=== PATIENT | female | born 1945 | race Caucasian/White ===

== ENCOUNTER 2023-09-26 16:58 | Emergency (ER) | payer MEDICARE, SELFPAY ==
[2023-09-26 17:00] VITALS: BP 129/71
--- NOTE | 2023-09-26 18:42 | ED.GENMED ---
History of Present Illness
<Riya Burns PA-C - Last Filed: 09/27/23 15:57>
General
Chief Complaint: Skin Problem
Source: patient
Exam Limitations: none
Time Seen by Provider: 09/26/23 18:41
Nursing documentation reviewed up to this point in time: agreed with
History of Present Illness
History of Present Illness:
Patient is a 78-year-old female history atrial fibrillation on Eliquis presenting evaluation of right foot pain. Patient states that yesterday evening and I fell the counter and struck on the top of the foot. She had a lot of bleeding initially
from the injury was taken via EMS to [facility] where they placed 2 stitches. They dressed the wound with gauze and wrapped with an Robert bandage. Patient states that since returning home from the hospital this morning around 3 AM she has
had a significant amount of bruising and much worse pain. She came back to the emergency department for further evaluation.
Patient denies any fevers, chills, chest pain, shortness of breath, numbness/tingling in the right lower extremity.
Patient is on Eliquis for atrial fibrillation.
Past History
<Riya Burns PA-C - Last Filed: 09/27/23 15:57>
Past History
ED Past Medical History: Arrthythmia (Atrial fib), CVA (X2), HTN, Hypercholesterolemia and Other (Chronic Migraines, Prolapse)
ED Past Surgical History: Appendectomy, Cardiac (Ablation X4) and Other
Social History
Tobacco: Non-smoker
Alcohol: Occasional
Drug: None
Personal:
Living: with family
Employment: Employed
Family History
Family History: Other
Review of Systems
<Riya Burns PA-C - Last Filed: 09/27/23 15:57>
Review of Systems
Allergies reviewed?: Yes
All Other Systems: ROS reviewed and negative except as documented in HPI and ROS
Phy Exam
<Riya Burns PA-C - Last Filed: 09/27/23 15:57>
Physical Exam
Physical Exam:
Vitals: Patient's vital signs are stable. Afebrile
General: Patient is mildly uncomfortable due to pain, no acute distress. Nontoxic-appearing
Skin: Significant ecchymosis and mild edema of right dorsal foot with ecchymoses surrounding to right ankle
Head: Normocephalic, atraumatic
Eyes: Sclera nonicteric. EOMs intact. No nystagmus.
Throat: Protecting airway
Neck: Normal ROM, no cervical spine tenderness, no meningismus
Cardiac: Regular rate and rhythm, no murmurs.
Pulm: Normal respiratory effort, no wheezes, rales, rhonchi heard on exam.
Abdomen: No abdominal tenderness.
Extremities: Significant tenderness of right dorsal foot with area of edema and significant ecchymoses. Pinpoint laceration of right dorsal foot with [address] with minimal oozing blood from laceration. No pus drainage or red streaking
around the wound. Palpable DP and PT pulses bilaterally. Acceptable capillary refill. Good sensation of right lower extremity. No bony tenderness of right lower extremity or obvious deformity.
Neuro: AAOx3. CN II-XII intact. No focal neurologic deficits.
Psychiatric: Normal affect.
Course
<Riya Burns PA-C - Last Filed: 09/27/23 15:57>
Vital Signs
Initial and Last Documented VS:
Initial Vital Signs
Temp Pulse Resp BP Pulse Ox
98.6 F 82 18 129/71 97
09/26/23 17:00 09/26/23 17:00 09/26/23 17:00 09/26/23 17:00 09/26/23 17:00
Last Documented Vital Signs
Temp Pulse Resp BP Pulse Ox
98.6 F 81 22 131/68 97
07/25/24 17:00 09/26/23 21:17 09/26/23 21:17 09/26/23 21:17 09/26/23 17:00
<Esa Earl DO - Last Filed: 09/26/23 20:47>
Vital Signs
Initial and Last Documented VS:
Initial Vital Signs
Temp Pulse Resp BP Pulse Ox
98.6 F 82 18 129/71 97
09/26/23 17:00 09/26/23 17:00 09/26/23 17:00 09/26/23 17:00 09/26/23 17:00
Last Documented Vital Signs
Temp Pulse Resp BP Pulse Ox
98.6 F 81 22 131/68 97
09/26/23 17:00 09/26/23 21:17 09/26/23 21:17 09/26/23 21:17 09/26/23 17:00
<Riya Burns PA-C - Last Filed: 09/27/23 15:57>
MDM/Problems Addressed
Differential Diagnosis Includes:
Not limited to: Hematoma, cellulitis, compartment syndrome
MDM/Problems Addressed:
78 year old female with history A-fib on Eliquis presenting for evaluation of severe foot pain following injury last night. Patient suffered laceration to right dorsal foot when knife fell off the counter. She was taken to [facility] where
2 sutures were placed in the foot. Patient presents today due to intractable pain in the right foot. Patient denies any numbness/tingling of right foot. Patient does have follow-up scheduled with trauma doctor from [place] tomorrow morning.
Patient up-to-date with vaccines. Vital signs are stable. Physical exam as above. Significant ecchymoses and tenderness of right dorsal foot. DP and PT pulse of right lower extremity palpable. Sensation intact. Patient does have nail ugandan so
capillary refill somewhat difficult to assess. Patient seen with attending physician. Do not suspect compartment syndrome at this time like likely hematoma. No surrounding erythema or red streaking, no pus drainage to assist infectious process at
this time. Bleeding remains under control. Will redress, placed in Robert wrap. Recommend ice, elevation, pain control with prescribed Vicodin as needed. Return precautions discussed at length with patient. Patient will monitor for any concerning
signs of compartment syndrome and return immediately. Advised to follow-up with trauma doctor as recommended tomorrow morning. Patient and patient's comfortable with plan. All questions answered.
Chronic conditions affecting care:
Atrial fibrillation on Eliquis
Acute Exacerbation and/or Progression of Chronic Illness:
N/A
<Riya Burns PA-C - Last Filed: 09/27/23 15:57>
*Pulse Oximetry
Patient hypoxic: no
*EKG
Interpreted by ED Provider?: NA
*Automobile Service Station Attendant Interpretation
Rate: Automobile Service Station Attendant- N/A
*Critical Care Note
Total Time (30-74mins, 75-104mins- exclusive of procedures): Not Applicable
ED Attending Note
<Riya Burns PA-C - Last Filed: 09/27/23 15:57>
-
Portions of this chart may have been created with voice recognition software.� Occasional wrong word or��sound alike� substitutions may have occurred due to the inherent limitations of voice recognition software.
<Esa Earl DO - Last Filed: 09/26/23 20:47>
ED Attending Note
Patient seen and examined by attending physician: Yes
I performed the substantive portion of visit, reviewed & personally made and approve the management plan that is documented in note by myself or DILIA.: Yes
Discharge Plan
Departure
Patient Disposition: Home (Routine Discharge)
Date of Disposition: 09/26/23
Time of Disposition: 20:51
Patient with high blood pressure during this ER visit?: No
Condition: Good
Covid-19: Not Applicable
Discharge Problem:
Injury of foot, right
Prescriptions:
No Action
cyanocobalamin (vitamin B-12) 1,000 MCG tablet extended release
1,000 mcg PO DAILY
atorvastatin 10 MG tablet
10 mg PO QPM
diltiazem HCl 180 MG capsule,extended release 24hr
180 mg PO QPM
alprazolam 0.25 MG tablet
0.125 mg PO QPM PRN (Reason: anxiety)
zolpidem 5 MG tablet
5 mg PO HS
cholecalciferol (vitamin D3) [Vitamin D3] 1,000 UNIT capsule
1,000 unit PO DAILY
escitalopram oxalate 20 MG tablet
20 mg PO DAILY
losartan 50 MG tablet
50 mg PO BID
cyclobenzaprine 10 MG tablet
5 mg PO Q6 PRN (Reason: pain)
meperidine 50 MG tablet
50 mg PO PRN PRN (Reason: migraine)
warfarin [Jantoven] 5 MG tablet
5 - 7.5 mg PO QPM
polyethylene glycol 3350 17 GRAMS powder in packet
17 grams PO DAILY Qty: 30 0RF
levofloxacin 500 MG tablet
500 mg PO DAILY Qty: 7 0RF
polyethylene glycol 3350 17 GRAMS powder in packet
17 grams PO DAILY 0RF
docusate sodium 100 MG capsule
100 mg PO BID 0RF
simethicone [Gas Relief 80 (simethicone)] 80 MG tablet,chewable
80 mg PO Q6H 0RF
hydrocodone-acetaminophen 1 EACH tablet
1 ea PO Q4HPRN PRN (Reason: pain) Qty: 14 0RF
meclizine 25 MG tablet
25 mg PO Q6HPRN PRN (Reason: dizziness) Qty: 12 0RF
ondansetron 4 MG tablet,disintegrating
4 mg PO TIDPRN PRN (Reason: nausea/vomiting) Qty: 8 0RF
Referrals:
DeNucci,Vickie T., AERIAL SURVEY TECHNICIAN [Family Provider] -
Activity Restrictions/Additional Instructions:
RETURN TO THE EMERGENCY DEPARTMENT WITH ANY SIGNIFICANT WORSENING IN PAIN OF RIGHT FOOT, NUMBNESS/TINGLING IN RIGHT FOOT, SWELLING IN RIGHT FOOT, FEVERS, CHILLS, WORSENING IN CURRENT SYMPTOMS, OR ANY OTHER CONCERNS
-As discussed�it is very important to keep your foot elevated. You should apply ice and keep foot wrapped in bandage. You should take the dressing off once per day to ensure symptoms are improving.
-You can continue to take your Vicodin as prescribed for pain in your right foot.
-Please make sure that you follow-up with your appointment with the foot/trauma doctor tomorrow morning as scheduled.
Monitor your symptoms closely and return to the emergency department any acute worsening/new symptom
Interventions
Interventions:
*Risk Screen - Suicide Last Done: 09/26/23 17:00
*General Assessment Last Done: 09/26/23 17:00
*Neglect/Abuse Screening Last Done: 09/26/23 17:42
*Nursing Disposition Last Done: 09/26/23 21:17
ED-Skin Assessment Last Done: 09/26/23 21:17
Discharge Date and Time
Discharge Date/Time: 09/26/23 21:19
Print Language: ROMANSH
[2023-09-26 21:16] VITALS: BP 131/68
[2023-09-26 21:17] VITALS: BP 131/68
== END 2023-09-26 21:19 | disposition home or self-care (01) ==
LOC: EMR 16:58
PROVIDERS: EMERGENCY PHYSICIAN Emergency Medicine; FAMILY PHYSICIAN Nurse Practitioner Family
DX: S99.921A Unspecified injury of right foot, initial encounter (principal); M79.671 Pain in right foot; S91.311A Laceration without foreign body, right foot, initial encounter; S90.31XA Contusion of right foot, initial encounter; R60.0 Localized edema; W26.0XXA Contact with knife, initial encounter; I48.91 Unspecified atrial fibrillation; I10 Essential (primary) hypertension; E78.00 Pure hypercholesterolemia, unspecified; G43.909 Migraine, unspecified, not intractable, without status migrainosus; Z79.01 Long term (current) use of anticoagulants
CPT/HCPCS: 99282

== ENCOUNTER 2023-12-08 16:04 | Emergency (ER) | payer MEDICARE, SELFPAY ==
[2023-12-08 16:06] VITALS: BP 159/93
[2023-12-08 16:35] LABS: % Basophils 0.6 % (0-2); % Immature Granulocytes 0.2 % (0-0.5); % Lymphocytes 27.3 % (20.5-51.1); % Monocytes 10.4 % (1.7-9.3); % Neutrophils 60.5 % (42.2-75.2); Absolute Eosinophils 0.1 10^3/uL (0-0.7); Absolute Lymphocytes 1.4 10^3/uL (1.2-3.4); Absolute Monocytes 0.5 10^3/uL (0.1-0.6); Absolute Neutrophils 3.1 10^3/uL (1.4-6.5); Hematocrit 32.6 % (37.0-47.0); Hemoglobin 11.1 g/dL (12.0-16.0); Mean Corpuscular Hgb 29.2 pg (27.0-31.0); Mean Corpuscular Volume 85.8 fL (81.0-99.0); Mean Platelet Volume 9.2 fL (7.4-10.4); Nucleated Red Blood Cells % 0 %; Platelet Count 227 10^3/uL (130-400); Red Cell Dist. Width 13.4 % (11.5-14.5); White Blood Cell Count 5.1 10^3/uL (4.8-10.8)
[2023-12-08 16:56] LABS: ALT (SGPT) 24 U/L (0-35); AST (SGOT) 26 U/L (14-36); Albumin 3.9 g/dl (3.5-5.0); Alkaline Phosphatase 63 U/L (38-126); Blood Urea Nitrogen 20 mg/dl (7-17); Calcium 9.4 mg/dl (8.4-10.2); Carbon Dioxide 27 mmol/L (22-30); Chloride 101 mmol/L (98-107); Glucose 90 mg/dl (70-99); Potassium 3.8 mmol/L (3.5-5.1); Sodium 137 mmol/L (135-145); Total Bilirubin 0.6 mg/dl (0.2-1.3); Total Protein 6.2 g/dl (6.3-8.2); eGFR > 60.00
[2023-12-08 16:57] LABS: Troponin I < 0.012 ng/ml
[2023-12-08 17:08] VITALS: BP 129/85
--- NOTE | 2023-12-08 17:13 | ED.GENMED ---
History of Present Illness
<LAWRENCE Rodney - Last Filed: 12/08/23 19:19>
General
Chief Complaint: Chest Pain
Source: patient
Time Seen by Provider: 12/08/23 17:10
Nursing documentation reviewed up to this point in time: agreed with
History of Present Illness
History of Present Illness:
Patient is a 78 year old female with a PMH of HTN HLD GERD and afib presents to the ED with complaints of chest pain x 3 days. She states there has been a chest tightness that comes and goes in the middle of her chest that has worsened with time.
The pain has started to radiate to the left side of her chest over her heart around 1200p today. It is currently rated a 6/10 on a pain scale. She states it is worse with taking a deep breath and with any sort of activity. Something like this has
never happened to her before. She admits to a mild headache and states she hasn't been drinking as much water as she usually does. Patient denies any sob palpitations light headedness numbness tingling nausea abdominal pain.
Patient has a history of HTN HLD GERD and afib which is all controlled on medicatoin. She admits to taking a blood thinner. She denies smoking but admits to occasional alcohol use.
Past History
<LAWRENCE Rodney - Last Filed: 12/08/23 19:19>
Past History
ED Past Medical History: Arrthythmia (Atrial fib), CVA (X2), HTN, Hypercholesterolemia and Other (Chronic Migraines, Prolapse)
ED Past Surgical History: Appendectomy, Cardiac (Ablation X4) and Other
Social History
Tobacco: Non-smoker
Alcohol: Occasional
Drug: None
Personal:
Living: with family
Employment: Employed
Family History
Family History: Other
Review of Systems
<LAWRENCE Rodney - Last Filed: 12/08/23 19:19>
Review of Systems
Allergies reviewed?: Yes
Constitutional: Reports no symptoms
Respiratory: Reports no symptoms
Cardiac: Reports chest pain
ABD/GI: Reports no symptoms
Neurological: Reports headache
Phy Exam
<LAWRENCE Rodney - Last Filed: 12/08/23 19:19>
General Physical Exam
General Presentation: well appearing
General age: appears stated age
General Habitus: normal
General Mental: alert
Cardiovascular Exam
Cardiovascular Exam: regular rate/rhythm, no edema, no gallop, no JVD and no murmur
Pulmonary Exam
Pulmonary Exam: lungs clear, no respiratory distress, no rales, chest non tender, no crackles, no rhonchi, no stridor, no wheezing and no cough
Scores
<ST RonelWI - Last Filed: 12/08/23 19:19>
Heart Score for Chest Pain Patients
STEMI patient?: No
History: Slightly or Non-Suspicious
ECG: Normal
Age: >/= 65 years
Risk Factors: 1 or 2 Risk Factors
Troponin: </= Normal Limit
Heart Score for Chest Pain Patients: 3
Heart Score Risk: 2.5% MACE over next 6 weeks
<Chas Arnold DO - Last Filed: 12/08/23 20:40>
Heart Score for Chest Pain Patients
Heart Score for Chest Pain Patients: 3
Heart Score Risk: 2.5% MACE over next 6 weeks
Course
<ST RonelWI - Last Filed: 12/08/23 19:19>
Orders/Labs/Results
Orders:
Orders
12/08/23 16:05
EKG [Electrocardiogram (*1)] Urgent
Reason for Study: Chest Pain
EKG- Treatment ONCE
12/08/23 16:27
Complete Blood Count/With Diff Urgent
Comprehensive Metabolic Panel Urgent
Troponin I Urgent
12/08/23 17:53
CT Chest Pe Study Urgent
Comment:
Reason For Exam: cp on inspiration radiation to back
12/08/23 18:02
Interrogate Pacemaker- Treatment ONCE
Abnormal Lab Results
12/08/23
16:27
RBC 3.80 L 10^6/uL
(4.20-5.40)
Hgb 11.1 L g/dL
(12.0-16.0)
Hct 32.6 L %
(37.0-47.0)
Monocytes % 10.4 H %
(1.7-9.3)
BUN 20 H mg/dl
(7-17)
Total Protein 6.2 L g/dl
(6.3-8.2)
12/08/23 16:27
12/08/23 16:27
Vital Signs
Initial and Last Documented VS:
Initial Vital Signs
Temp Pulse Resp BP Pulse Ox
98 F 78 18 159/93 97
12/08/23 16:06 12/08/23 16:06 12/08/23 16:06 12/08/23 16:06 12/08/23 16:06
Last Documented Vital Signs
Temp Pulse Resp BP Pulse Ox
98 F 78 18 159/93 97
12/08/23 16:06 12/08/23 16:06 12/08/23 16:06 12/08/23 16:06 12/08/23 16:06
Yvonlt;Chas Arnold, DO - Last Filed: 12/08/23 20:40>
Orders/Labs/Results
Orders:
Orders
12/08/23 16:05
EKG [Electrocardiogram (*1)] Urgent
Reason for Study: Chest Pain
EKG- Treatment ONCE
12/08/23 16:27
Complete Blood Count/With Diff Urgent
Comprehensive Metabolic Panel Urgent
Troponin I Urgent
12/08/23 17:53
CT Chest Pe Study Urgent
Comment:
Reason For Exam: cp on inspiration radiation to back
12/08/23 18:02
Interrogate Pacemaker- Treatment ONCE
Abnormal Lab Results
12/08/23
16:27
RBC 3.80 L 10^6/uL
(4.20-5.40)
Hgb 11.1 L g/dL
(12.0-16.0)
Hct 32.6 L %
(37.0-47.0)
Monocytes % 10.4 H %
(1.7-9.3)
BUN 20 H mg/dl
(7-17)
Total Protein 6.2 L g/dl
(6.3-8.2)
12/08/23 16:27
12/08/23 16:27
Vital Signs
Initial and Last Documented VS:
Initial Vital Signs
Temp Pulse Resp BP Pulse Ox
98 F 78 18 159/93 97
12/08/23 16:06 12/08/23 16:06 12/08/23 16:06 12/08/23 16:06 12/08/23 16:06
Last Documented Vital Signs
Temp Pulse Resp BP Pulse Ox
98 F 78 18 159/93 97
12/08/23 16:06 12/08/23 16:06 12/08/23 16:06 12/08/23 16:06 12/08/23 16:06
Yvonlt;LAWRENCE Rodney - Last Filed: 12/08/23 19:19>
MDM/Problems Addressed
Differential Diagnosis Includes:
stable angina, dehydration,
MDM/Problems Addressed:
labs and troponin normal give fluids and get cat scan 718a update patient is doing well waiting to get CT scan
<LAWRENCE Rodney - Last Filed: 12/08/23 19:19>
*Critical Care Note
Total Time (30-74mins, 75-104mins- exclusive of procedures): Not Applicable
<Chas Arnold DO - Last Filed: 12/08/23 20:40>
Update Note
Update Note:
[employer] express interrogation service show no acute events on patient's Linq recorder
Diagnostic Imaging Report
SignedOrder #:[id number]
Exams: CT Chest Pe Study
INDICATION: Chest pain
Scanning parameters: CT arteriography of the chest with intravenous contrast material was obtained. 3-D reconstructed coronal imaging of the chest was performed as well. Automated exposure control was used.
Comparison examination: Chest x-ray 06/11/2016, thoracic spine plain film exam 09/12/2021
FINDINGS:
There is no pulmonary embolism.
There is no aortic dissection.
There is no pneumothorax.
There are no abnormal pleural or parenchymal masses.
There is no pleural effusion.
There is no significant parenchymal airspace disease.
The mediastinum is normal.
There is no hilar or mediastinal lymphadenopathy.
There is no axillary lymphadenopathy.
There is mild lingular, right lower lobe and right upper lobe atelectasis versus scarring.
The osseous structures show mild degenerative disease. There is a moderate mid thoracic spine compression fracture which is stable. There is evidence of previous vertebroplasty of probable L1 andL2 which also have moderate compression fractures.
IMPRESSION: No acute disease of the chest. No evidence of pulmonary embolus.
12/08/2023 2038 PM: Patient has no signs of allergic reaction. Discussed CT scan findings with patient. Patient will follow-up with her senior foreman at the outside hospital.
ED Attending Note
<LAWRENCE Rodney - Last Filed: 12/08/23 19:19>
-
Portions of this chart may have been created with voice recognition software.� Occasional wrong word or��sound alike� substitutions may have occurred due to the inherent limitations of voice recognition software.
<Chas Arnold, DO - Last Filed: 12/08/23 20:40>
ED Attending Note
Patient seen and examined by attending physician: Yes
I performed the substantive portion of visit, reviewed & personally made and approve the management plan that is documented in note by myself or DILIA.: Yes
ED Attending Note:
Pleasant 78-year-old female presents to the emergency department with several days of chest pain. She states that it is central in nature and radiates to her left side. It is worse with deep inspiration. Patient states that the chest pressure has
been intermittent and reproducible with inspiration. Denies fever, chills, nausea or vomiting. She does follow with cardiology at an outside hospital. Patient denies previous cardiac history though she does have a Linq monitor for atrial
fibrillation. She has had 4 cardiac ablations. Patient was seen in conjunction with the PA student. I have reviewed and agree with the history and treatment plan presented. On my independent physical exam, patient is awake, alert, and oriented
x3. Heart is regular rate rhythm. Lungs are clear to auscultation bilaterally. No wheezes rales rhonchi present. Abdomen is soft and nontender. There is no tenderness to palpation in the chest wall. No edema bilaterally upper or lower
extremities. Moves all 4 extremities. Skin is warm and dry.
Discharge Plan
Departure
Patient Disposition: Home (Routine Discharge)
Date of Disposition: 12/08/23
Time of Disposition: 20:38
Patient with high blood pressure during this ER visit?: Yes
Condition: Good
Discharge Problem:
Chest pain
Instructions: Chest Pain NON-DHP Customer Servicer Follow Up, BLOOD PRESSURE
Prescriptions:
No Action
cyanocobalamin (vitamin B-12) 1,000 MCG tablet extended release
1,000 mcg PO DAILY
atorvastatin 10 MG tablet
10 mg PO QPM
diltiazem HCl 180 MG capsule,extended release 24hr
180 mg PO QPM
alprazolam 0.25 MG tablet
0.125 mg PO QPM PRN (Reason: anxiety)
zolpidem 5 MG tablet
5 mg PO HS
cholecalciferol (vitamin D3) [Vitamin D3] 1,000 UNIT capsule
1,000 unit PO DAILY
escitalopram oxalate 20 MG tablet
20 mg PO DAILY
losartan 50 MG tablet
50 mg PO BID
cyclobenzaprine 10 MG tablet
5 mg PO Q6 PRN (Reason: pain)
meperidine 50 MG tablet
50 mg PO PRN PRN (Reason: migraine)
warfarin [Jantoven] 5 MG tablet
5 - 7.5 mg PO QPM
polyethylene glycol 3350 17 GRAMS powder in packet
17 grams PO DAILY Qty: 30 0RF
levofloxacin 500 MG tablet
500 mg PO DAILY Qty: 7 0RF
polyethylene glycol 3350 17 GRAMS powder in packet
17 grams PO DAILY 0RF
docusate sodium 100 MG capsule
100 mg PO BID 0RF
simethicone [Gas Relief 80 (simethicone)] 80 MG tablet,chewable
80 mg PO Q6H 0RF
hydrocodone-acetaminophen 1 EACH tablet
1 ea PO Q4HPRN PRN (Reason: pain) Qty: 14 0RF
meclizine 25 MG tablet
25 mg PO Q6HPRN PRN (Reason: dizziness) Qty: 12 0RF
ondansetron 4 MG tablet,disintegrating
4 mg PO TIDPRN PRN (Reason: nausea/vomiting) Qty: 8 0RF
Referrals:
Vickie Blackwell CRNP [Family Provider] -
Activity Restrictions/Additional Instructions:
Please follow-up with your senior foreman as directed.
It was a pleasure meeting you and taking part in your care. We hope for your continued healing and wellness.
Please read discharge instructions in their entirety. However, they are for general education and may not describe your exact diagnosis at discharge. Information on your ER visit and medical conditions were discussed with you along with appropriate
follow up information...
If indicated, please take your medications as instructed and indicated on discharge paperwork.
Please schedule a follow up appointment as directed. Call to schedule an appointment
Please return to the emergency department with ANY change in, persisting, or worsening of symptoms. If any of your symptoms do not improve, or persist, or become more severe within 6-12 hours, please return to the emergency department for further
care.
Please return to the emergency department if you develop a headache, neck pain/stiffness, fever greater than 100.4F, chest pain, shortness of breath, persistent nausea, vomiting, slurred speech, difficulty walking, numbness/tingling, weakness, signs
of infection or any other symptoms that are worrisome to you.
If you have any questions or concerns please do not hesitate to call the Hospital at or E-mail me directly at [email or web address]
Interventions
Interventions:
*Risk Screen - Suicide Last Done: 12/08/23 16:06
*General Assessment Last Done: 12/08/23 16:06
*Neglect/Abuse Screening Last Done: 12/08/23 16:06
ED- Fall Risk Assessment Last Done: 12/08/23 17:40
*ED COVID-19 Vaccine History Last Done: 12/08/23 17:38
ED- Cardiac Assessment Last Done: 12/08/23 17:40
Discharge Date and Time
Print Language: VIETNAMESE
[2023-12-08 17:38] VITALS: BMI 27.9
[2023-12-08 18:00] VITALS: BP 151/73
[2023-12-08 19:00] VITALS: BP 161/71
== END 2023-12-08 21:20 | disposition home or self-care (01) ==
LOC: EMR 16:04
PROVIDERS: Emergency Medicine; EMERGENCY PHYSICIAN Student in an Organized Health Care Education/Training Program; FAMILY PHYSICIAN Nurse Practitioner Family
DX: R07.89 Other chest pain (principal); E78.00 Pure hypercholesterolemia, unspecified; K21.9 Gastro-esophageal reflux disease without esophagitis; I48.91 Unspecified atrial fibrillation; I10 Essential (primary) hypertension; Z86.73 Personal history of transient ischemic attack (TIA), and cerebral infarction without residual deficits; Z90.49 Acquired absence of other specified parts of digestive tract; Z95.0 Presence of cardiac pacemaker
CPT/HCPCS: 99284; 71275; 80053; 84484; 85025; 93005; Q9967

== ENCOUNTER → 2024-04-13 12:25 | Outpatient (REF) | payer MEDICARE, SELFPAY ==
[2024-04-13 13:18] LABS: INR 3.39
== END ==
LOC: REG 12:25
PROVIDERS: FAMILY PHYSICIAN Nurse Practitioner Family
DX: I48.91 Unspecified atrial fibrillation (principal)
CPT/HCPCS: 36415; 85610

== ENCOUNTER 2024-07-08 23:28 | Emergency (ER) | payer MEDICARE, SELFPAY ==
[2024-07-08 23:31] VITALS: BP 156/73
[2024-07-09] VITALS: BP 131/66
[2024-07-09] MEDS: DILAUDID 0.5 MG IV (00:56)
--- NOTE | 2024-07-09 01:20 | ED.GENMED ---
History of Present Illness
General
Chief Complaint: Back Pain
Source: patient, family (Daughter at bedside) and previous hospital records (External medical summary report reviewed)
Exam Limitations: none
Time Seen by Provider: 07/08/24 23:57
Nursing documentation reviewed up to this point in time: agreed with
History of Present Illness
History of Present Illness:
This is a 79-year-old woman with history of A-fib, chronically maintained on Eliquis, history of hyperlipidemia, hypertension, GERD as well as history of vertebral compression fracture 3 years ago�underwent vertebroplasty at that time. She has
history of chronic joint pain/chronic back pain, follows with pain management, Dr. Ford and had been maintained on hydrocodone 10 mg but, over the past several months has successfully weaned opioid medication to off.
PDMP reviewed, last hydrocodone 10 mg prescription for 150 tablets filled April 2024.
She has history of left hip fracture with left hip fracture repair March 12 at [facility]. Currently receiving outpatient physical therapy.
Patient states 3 days ago, on Saturday, July 06 she bent over and felt immediate severe pain in her mid to low back. Mid to low back pain persists, worsening since then with intermittent spasms of severe nonradiating pain that is worse with movement,
especially worse with rotation of her trunk and flexion of her trunk.
She had a routine scheduled appointment with her PCP the following day, July 07 and was prescribed cyclobenzaprine which thus far has been ineffective.
She denies coughing or shortness of breath, back pain is not worse with deep breath, she denies abdominal pain. Back pain does not radiate, she denies leg pain, denies weakness or numbness. She denies saddle anesthesia. No difficulty moving her
bowels or bladder. She has not had a fever nor chills. She denies rash.
Past History
Past History
ED Past Medical History: Arrthythmia (Atrial fib), CVA (X2), HTN, Hypercholesterolemia and Other (Chronic Migraines, Prolapse; vertebral compression fracture, left hip fracture, chronic back pain-follows with pain management)
ED Past Surgical History: Appendectomy, Cardiac (Ablation X4), Orthopedic (Left hip replacement March 12, 2024; L1 vertebral compression fracture with vertebroplasty 2021) and Other
Social History
Tobacco: Non-smoker
Alcohol: Occasional
Drug: None
Personal:
Living: with family
Employment: Retired
Family History
Family History: Other
Phy Exam
Physical Exam
Physical Exam:
GENERAL: 79-year-old woman appears her stated age, awake and alert, appears in mild distress related to pain. Lying Semi-Magallanes's on stretcher, resistant to reposition due to pain.
EYE: The head is normocephalic, atraumatic. Pupils equal and reactive. anicteric
NECK: Supple, nontender, full range of motion without difficulty nor pain, no meningismus, no significant adenopathy.
ENT: oral mucosa is moist. No rhinorrhea.
CARDIAC: Regular rate and rhythm. no murmur.
LUNGS: Clear breath sounds bilaterally, no acute respiratory distress, no wheezes/rales/rhonchi
ABDOMEN: Soft, nondistended, without focal tenderness, no r/g, no cvat. normoactive BS.
BACK: Moderate midline vertebral tenderness mid to distal thoracic spine. No step-off deformity nor crepitus. No rash nor soft tissue swelling.
NEUROLOGICAL: Alert and oriented x3, no focal neuro deficits. Motor strength is 5/5 bilaterally. Neuro sensations intact.
SKIN: Warm and dry, normal color, skin intact. No rash.
MUSCULOSKELETAL: No C/C/E. peripheral pulses are full and equal b/l. No palpable tenderness.
PSYCH: Normal and appropriate interaction.
Course
Orders/Labs/Results
Orders:
Orders
07/09/24 00:45
HYDROmorphone [Dilaudid] 0.5 mg IV NOW STA
CR Thoracic Spine 3 Views Urgent
Comment:
Reason For Exam: acute mid to low back pain x 2 days after bending
Lumbar Spine Complete, 4 View [CR Lumbar Spine Comp Min 4 Vw*] Urgent
Comment:
Reason For Exam: acute LBP after bending 3 days ago
07/09/24 02:05
HYDROmorphone [Dilaudid] 0.25 mg IV NOW STA
07/09/24 02:05
Lidocaine [Lidocaine 4% Patch] 1 patch TOPICAL NOW STA
Apply Lidocaine patch(s) to:: mid thoracic back
Vital Signs
Initial and Last Documented VS:
Initial Vital Signs
Temp Pulse Resp BP Pulse Ox
98.1 F 66 18 156/73 97
07/08/24 23:31 07/08/24 23:31 07/08/24 23:31 07/08/24 23:31 07/08/24 23:31
Last Documented Vital Signs
Temp Pulse Resp BP Pulse Ox
98.1 F 66 18 156/73 97
07/08/24 23:31 07/08/24 23:31 07/08/24 23:31 07/08/24 23:31 07/08/24 23:31
MDM/Problems Addressed
Differential Diagnosis Includes:
Concern for acute thoracolumbar sprain strain, significant concern for vertebral compression fracture especially in light of previous vertebral compression fracture at L1.
Reassuring that there is no radicular signs or symptoms, no neurologic deficits. Nothing to suggest vascular compromise.
Will medicate for pain with an IV dose of Dilaudid and will check x-rays of the thoracic as well as lumbar spine.
As patient maintained on Eliquis we will avoid NSAIDs.
Chronic conditions affecting care: HTN, Arrhythmia and Other (History of L1 vertebral compression fracture 2021. Left hip fracture March 2024.)
Acute Exacerbation and/or Progression of Chronic Illness: Other (exacerbation of chronic back pain)
*Radiology
Radiology exam reviewed: preliminary read by ED provider (Thoracic and lumbar x-rays show chronic compression deformities with vertebroplasty T12 and L1 vertebra. There is a chronic mild compression deformity of T7. There is a new moderate
compression fracture of L3 vertebra compared to previous film 2022. There is also loop recorder in place which is n)
*Pulse Oximetry
Patient hypoxic: no
*Critical Care Note
Total Time (30-74mins, 75-104mins- exclusive of procedures): Not Applicable
Update Note
Update Note:
02:10
Patient is much more comfortable after IV dose of Dilaudid.
Much less hesitant to move, able to sit up but does continue with mild to moderate pain with repositioning, sitting up and rolling over.
X-rays show chronic appearing mild compression deformity of T7 vertebra, chronic compression deformities with vertebroplasty T12/L1 and a new compression deformity at L3. However, patient has no focal tenderness at the L3 level, continues with
moderate tenderness mid thoracic back and I am concerned for potential occult worsening of T7 vertebral compression fracture.
She continues to have no radicular signs or symptoms, no chest pain, no shortness of breath nor abdominal pain, no neurologic deficits.
Will place lidocaine patch to mid thoracic spine and give an additional small dose of IV Dilaudid.
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 Ford.
Recommend continuing with physical therapy as well.
Will prescribe short course of hydrocodone with plan for follow-up with pain management to continue opioid medication.
Return precautions discussed.
ED Attending Note
-
Portions of this chart may have been created with voice recognition software.� Occasional wrong word or��sound alike� substitutions may have occurred due to the inherent limitations of voice recognition software.
Discharge Plan
Departure
Patient Disposition: Home (Routine Discharge)
Date of Disposition: 07/09/24
Time of Disposition: 02:09
Patient with high blood pressure during this ER visit?: No
Condition: Good
Discharge Problem:
acute exacerbation of chronic back pain, Closed compression fracture of L3 vertebra, mild compression fracture T-7 vertebra
Instructions: Vertebral Compression Fracture ED
Prescriptions:
New
hydrocodone-acetaminophen 10-325 mg tablet
1 tab PO Q6H PRN (Reason: Pain) Qty: 30 0RF
No Action
cyanocobalamin (vitamin B-12) 1,000 MCG tablet extended release
1,000 mcg PO DAILY
atorvastatin 10 MG tablet
10 mg PO QPM
diltiazem HCl 180 MG capsule,extended release 24hr
180 mg PO QPM
alprazolam 0.25 MG tablet
0.125 mg PO QPM PRN (Reason: anxiety)
zolpidem 5 MG tablet
5 mg PO HS
cholecalciferol (vitamin D3) [Vitamin D3] 1,000 UNIT capsule
1,000 unit PO DAILY
escitalopram oxalate 20 MG tablet
20 mg PO DAILY
losartan 50 MG tablet
50 mg PO BID
cyclobenzaprine 10 MG tablet
5 mg PO Q6 PRN (Reason: pain)
meperidine 50 MG tablet
50 mg PO PRN PRN (Reason: migraine)
warfarin [Jantoven] 5 MG tablet
5 - 7.5 mg PO QPM
polyethylene glycol 3350 17 GRAMS powder in packet
17 grams PO DAILY Qty: 30 0RF
levofloxacin 500 MG tablet
500 mg PO DAILY Qty: 7 0RF
polyethylene glycol 3350 17 GRAMS powder in packet
17 grams PO DAILY 0RF
docusate sodium 100 MG capsule
100 mg PO BID 0RF
simethicone [Gas Relief 80 (simethicone)] 80 MG tablet,chewable
80 mg PO Q6H 0RF
hydrocodone-acetaminophen 1 EACH tablet
1 ea PO Q4HPRN PRN (Reason: pain) Qty: 14 0RF
meclizine 25 MG tablet
25 mg PO Q6HPRN PRN (Reason: dizziness) Qty: 12 0RF
ondansetron 4 MG tablet,disintegrating
4 mg PO TIDPRN PRN (Reason: nausea/vomiting) Qty: 8 0RF
Referrals:
Vickie Blackwell CRNP [Family Provider] - Call in 1-3 days for appt
Karthikeyan Ford, DO [Non-Admitting Privileges] - Follow up in 2-3 days
Interventions
Interventions:
*Risk Screen - Suicide Last Done: 07/08/24 23:31
*General Assessment Last Done: 07/08/24 23:31
*Neglect/Abuse Screening Last Done: 07/08/24 23:31
*ED- Fall Risk Assessment Last Done: 07/08/24 23:31
*ED COVID-19 Vaccine History Last Done: 07/08/24 23:31
ED-Musculoskeletal Assessment Last Done: 07/09/24 00:37
Discharge Date and Time
Print Language: PASHTO
[2024-07-09 02:00] VITALS: BP 131/66
[2024-07-09] MEDS: LIDOCAINE 4% PATCH 1 PATCH TOPICAL (02:17)
[2024-07-09] MEDS: DILAUDID 0.25 MG IV (02:17)
== END 2024-07-09 03:10 | disposition home or self-care (01) ==
LOC: EMR 23:28
PROVIDERS: EMERGENCY PHYSICIAN Emergency Medicine; FAMILY PHYSICIAN Nurse Practitioner Family
DX: S32.039A Unspecified fracture of third lumbar vertebra, initial encounter for closed fracture (principal); X58.XXXA Exposure to other specified factors, initial encounter; G89.29 Other chronic pain; M54.9 Dorsalgia, unspecified; I48.91 Unspecified atrial fibrillation; I10 Essential (primary) hypertension; E78.00 Pure hypercholesterolemia, unspecified; Z79.01 Long term (current) use of anticoagulants; Z86.73 Personal history of transient ischemic attack (TIA), and cerebral infarction without residual deficits; Z90.49 Acquired absence of other specified parts of digestive tract; Z96.642 Presence of left artificial hip joint
CPT/HCPCS: 99283; 96374; 96375; 72072; 72110

== ENCOUNTER → 2024-07-31 14:38 | Outpatient (REF) | payer MEDICARE, SELFPAY | LOC: HWRAD 14:38 | PROVIDERS: ATTENDING PHYSICIAN Neurological Surgery; FAMILY PHYSICIAN Nurse Practitioner Family | DX: S72.92XA Unspecified fracture of left femur, initial encounter for closed fracture (principal); I82.409 Acute embolism and thrombosis of unspecified deep veins of unspecified lower extremity; I82.493 Acute embolism and thrombosis of other specified deep vein of lower extremity, bilateral | CPT/HCPCS: 93970 ==

== ENCOUNTER → 2025-02-02 12:40 | Outpatient (REF) | payer MEDICARE, SELFPAY | LOC: RAD 12:40 | PROVIDERS: ATTENDING PHYSICIAN Internal Medicine Cardiovascular Disease; FAMILY PHYSICIAN Nurse Practitioner Family | DX: J40 Bronchitis, not specified as acute or chronic (principal) | CPT/HCPCS: 71046 ==